=== PATIENT | female | born 1980 | race Caucasian/White ===

== ENCOUNTER 2016-11-23 22:44 | Emergency (ER) | payer MEDICAID, OTHER ==
[~2016-11-23] VITALS: Ht 162.6 cm; Wt 63.5 kg
[~2016-11-23 22:44] MED LIST: CRUT1EAC7 MC; DOCU100C37 PO; HYDR-3816 PO; HYDR1TAB PO; IBP600T1 PO; IBUP-1773 PO; METH0.2T45 PO; OXYC-12 PO; PREN1TAB83 PO; SIME80TA16 PO
[2016-11-23] MEDS ORDERED: NS IV 1000 ML 1,000 ML IV ONE (23:01)
[2016-11-23] MEDS ORDERED: KETOROLAC 30 MG/ML VIAL IVP STA (23:01)
[2016-11-23 23:06] LABS: BASOPHILS % (AUTO) 0 % (0-10); EOSINOPHILS # (AUTO) 0.2 10^3/uL (0.0-0.3); EOSINOPHILS % (AUTO) 2 % (0-10); LYMPHOCYTES % (AUTO) 36 % (12-44); MEAN CORPUSCULAR HEMOGLOBIN 29 PG (25-34); MEAN CORPUSCULAR HGB CONC 35 G/DL (32-36); MEAN CORPUSCULAR VOLUME 85 FL (80-99); MEAN PLATELET VOLUME 9.7 FL (7.4-10.4); MONOCYTES # (AUTO) 0.7 X 10^3 (0.0-1.0); MONOCYTES % (AUTO) 6 % (0-12); NEUTROPHILS # (AUTO) 6.1 X 10^3 (1.8-7.8); NEUTROPHILS % (AUTO) 55 % (42-75); PLATELET COUNT 226 10^3/uL (130-400); RED BLOOD COUNT 4.49 10^6/uL (4.35-5.85); RED CELL DISTRIBUTION WIDTH 13.2 % (10.0-14.5); WHITE BLOOD COUNT 11.1 10^3/uL (4.3-11.0)
[2016-11-23 23:06] LABS: BILIRUBIN,URINE NEGATIVE (NEGATIVE); KETONES,URINE NEGATIVE (NEGATIVE); LEUKOCYTE ESTERASE ,URINE NEGATIVE (NEGATIVE); NITRITE,URINE NEGATIVE (NEGATIVE); PH,URINE 7 (5-9); PROTEIN,URINE NEGATIVE (NEGATIVE); UROBILINOGEN,URINE NORMAL (NORMAL)
--- NOTE | 2016-11-23 23:16 | ED GU-Female ---
General Chief Complaint: Abdominal/GI Problems Stated Complaint: POSSIBLE KIDNEY STONE Nursing Triage Note: lower abdominal pain radiating to bilateral flanks x3 weeks. seen at [facility] for same last week. reports blood in urine. Nursing Sepsis Screen: No Definite Risk Source: patient Exam Limitations: no limitations History of Present Illness Time seen by provider: 22:55 Initial Comments Here with report of lower abdominal pain that radiates to the back bilaterally and dysuria. This is been going on for about 3 weeks. She was seen at her clinic and told that she had a little bit of blood in her urine but they said that she did not have a urinary tract infection last week. States that things are getting worse and she was concerned so presented for further evaluation. Denies nausea or vomiting. States ibuprofen and Tylenol at typical dosing is not helping. Last dose of ibuprofen was 5 hours ago and was 400 mg. Timing/Duration: week, getting worse Severity/Quality: burning Location: suprapubic, urethral Radiation: back, right flank, left flank Activities at Onset: none Sexual Mott History: less than 2 months ago, single partner Associated Symptoms: abdominal pain, dysuria, No fever/chills, lower back pain , No nausea/vomiting, No urinary frequency Allergies and Home Medications Allergies Coded Allergies: latex (Unverified Allergy, Unknown, RASH, 01/29/16) States latex gives her a rash Uncoded Allergies: PEROXIDE (Allergy, Unknown, RASH, 04/07/05) STATES GIVES HER A RASH Home Medications No Active Prescriptions or Reported Meds Constitutional: see HPI EENTM: no symptoms reported Respiratory: no symptoms reported, No cough, No short of breath Cardiovascular: no symptoms reported Gastrointestinal: abdominal pain, No diarrhea, No nausea, No vomiting Genitourinary: see HPI Musculoskeletal: see HPI, back pain, No muscle pain Skin: no symptoms reported All Other Systemes Reviewed Negative Unless Noted: Yes Past Bovuzmd-Jfsfmk-Kwvvbz Hx Patient Social History Alcohol Use: Denies Use Recreational Drug Use: No Smoking Status: Current Everyday Smoker Type Used: Cigarettes Recent Foreign Travel: No Contact w/Someone Who Travel: No Recent Infectious Disease Expo: No Recent Hopitalizations: No Immunizations Up To Date Tetanus Booster (TDap): Unknown Date of Influenza Vaccine: Dec 04, 2015 Seasonal Allergies Seasonal Allergies: Yes Surgeries History of Surgeries: Yes (OVARIAN CYST) Surgeries: Appendectomy, Gallbladder, 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 Respiratory History of Respiratory Disorde: No Cardiovascular History of Cardiac Disorders: No Neurological History of Neurological Disord: No Reproductive System : No Hx Reproductive Disorders: Yes (MENORRHAGIA, DYSMENORRHEA) Sexually Transmitted Disease: No HIV/AIDS: No Female Reproductive Disorders: Menstrual Problems, 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, 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 Gastrointestinal History of Gastrointestinal Di: No Musculoskeletal History of Musculoskeletal Dis: No Endocrine History of Endocrine Disorders: No HEENT History of HEENT Disorders: No Loss of Vision: Bilateral Hearing Impairment: Denies Cancer History of Cancer: No Psychosocial History of Psychiatric Problem: No Integumentary History of Skin or Integumenta: No Blood Transfusions History of Blood Disorders: Yes (ANEMIA) Adverse Reaction to a Blood Tr: No Reviewed Nursing Assessment Reviewed/Agree w Nursing PMH: Yes Family Medical History Significant Family History: No Pertinent Family Hx Physical Exam Vital Signs Vital Sign - Last 12Hours 11/23/16 22:57 Temp 98.3 Pulse 96 Resp 18 B/P (MAP) 142/91 Pulse Ox 100 O2 Delivery Room Air Capillary Refill : Less Than 3 Seconds General Appearance: WD/WN, no apparent distress HEENT: PERRL/EOMI, pharynx normal Neck: full range of motion, supple Cardiovascular: regular rate, rhythm, no murmur Respiratory: lungs clear, normal breath sounds Gastrointestinal: non tender, soft Back: normal inspection, CVA tenderness (R), CVA tenderness (L) Neurologic/Psychiatric: alert, oriented x 3 Skin: normal color Progress/Results/Core Measures Results/Orders Lab Results Laboratory Tests Test 11/23/16 22:54 11/23/16 23:00 Range/Units Urine Color YELLOW Urine Clarity CLEAR Urine pH 7 5-9 Urine Specific [place] 1.010 L 1.016-1.022 Urine Protein NEGATIVE NEGATIVE Urine Glucose (UA) NEGATIVE NEGATIVE Urine Ketones NEGATIVE NEGATIVE Urine Nitrite NEGATIVE NEGATIVE Urine Bilirubin NEGATIVE NEGATIVE Urine Urobilinogen NORMAL NORMAL MG/DL Urine Leukocyte Esterase NEGATIVE NEGATIVE Urine RBC (Auto) 1+ H NEGATIVE Urine RBC RARE /HPF Urine WBC 0-2 /HPF Urine Squamous Epithelial Cells 10-25 H /HPF Urine Crystals NONE /LPF Urine Bacteria MODERATE H /HPF Urine Casts NONE /LPF Urine Mucus NEGATIVE /LPF Urine Culture Indicated NO White Blood Count 11.1 H 4.3-11.0 10^3/uL Red Blood Count 4.49 4.35-5.85 10^6/uL Hemoglobin 13.2 11.5-16.0 G/DL Hematocrit 38 35-52 % Mean Corpuscular Volume 85 80-99 FL Mean Corpuscular Hemoglobin 29 25-34 PG Mean Corpuscular Hemoglobin Concent 35 32-36 G/DL Red Cell Distribution Width 13.2 10.0-14.5 % Platelet Count 226 130-400 10^3/uL Mean Platelet Volume 9.7 7.4-10.4 FL Neutrophils (%) (Auto) 55 42-75 % Lymphocytes (%) (Auto) 36 12-44 % Monocytes (%) (Auto) 6 0-12 % Eosinophils (%) (Auto) 2 0-10 % Basophils (%) (Auto) 0 0-10 % Neutrophils # (Auto) 6.1 1.8-7.8 X 10^3 Lymphocytes # (Auto) 4.0 1.0-4.0 X 10^3 Monocytes # (Auto) 0.7 0.0-1.0 X 10^3 Eosinophils # (Auto) 0.2 0.0-0.3 10^3/uL Basophils # (Auto) 0.0 0.0-0.1 10^3/uL Sodium Level 140 135-145 MMOL/L Potassium Level 3.2 L 3.6-5.0 MMOL/L Chloride Level 107 98-107 MMOL/L Carbon Dioxide Level 22 21-32 MMOL/L Anion Gap 11 5-14 MMOL/L Blood Urea Nitrogen 14 7-18 MG/DL Creatinine 0.77 0.60-1.30 MG/DL Estimat Glomerular Filtration Rate > 60 BUN/Creatinine Ratio 18 Glucose Level 77 70-105 MG/DL Calcium Level 9.5 8.5-10.1 MG/DL Total Bilirubin 0.2 0.1-1.0 MG/DL Aspartate Amino Transf (AST/SGOT) 12 5-34 U/L Alanine Aminotransferase (ALT/SGPT) 19 0-55 U/L Alkaline Phosphatase 45 40-136 U/L Total Protein 7.4 6.4-8.2 GM/DL Albumin 4.2 3.2-4.5 GM/DL My Orders Orders - WIL BEACH MD Cbc With Automated Diff (11/23/16 23:01) Comprehensive Metabolic Panel (11/23/16 23:01) Ua Culture If Indicated (11/23/16 23:01) Saline Lock/Iv-Start (11/23/16 23:01) Ns Iv 1000 Ml (Sodium Chloride 0.9%) (11/23/16 23:01) Ketorolac Injection (Toradol Injection) (11/23/16 23:01) Ct Abd/Pelvis Wo(Kidney Stone) (11/23/16 23:37) Medications Given in ED Current Medications Medications Dose Ordered Sig/Ivana Route Start Time Stop Time Status Last Admin Dose Admin Sodium Chloride 1,000 ml @ 0 mls/hr Q0M ONCE IV 11/23/16 23:01 11/23/16 23:02 DC 11/23/16 23:07 0 MLS/HR Vital Signs/I&O Vital Sign - Last 12Hours 11/23/16 11/23/16 22:57 23:07 Temp 98.3 98.3 Pulse 96 Resp 18 B/P (MAP) 142/91 Pulse Ox 100 O2 Delivery Room Air Blood Pressure Mean: 108 Progress Note : Progress Note Seen and evaluated. IV, labs and UA ordered. Normal saline 1 L bolus. Toradol 30 mg IV. Monitor patient. CT kidney stone protocol ordered given patient's history of blood in the urine. 0025: CT report noted. Patient feels a little bit better. No significant findings overall. Patient was instructed to follow-up with her sizer hand, Dr. Real for further evaluation including possibility of pelvic ultrasound. While not mentioned on the CT report, there does appear to be a possible left ovarian cysts and this should be further evaluated but can be done as outpatient. Patient verbalize understanding. Discharged home with return precautions. Patient verbalize understanding instructions and agreement with plan. Diagnostic Imaging Diagonstic Imaging: CT Plain Films/CT/US/NM/MRI: abdomen, pelvis Comments Normal noncontrast CT of the abdomen and pelvis. Reviewed: Reviewed [place] Study, Reviewed by Me Departure Impression Impression: Primary Impression: Pelvic pain Disposition: HOME, SELF-CARE Condition: Improved Departure-Patient Inst. Decision time for Depature: 00:32 Referrals: NO,LOCAL PHYSICIAN (PCP) Primary Care Physician BIANCA REAL DO Patient Instructions: Acute Abdomen (Belly Pain), Adult (DC) Add. Discharge Instructions: All discharge instructions reviewed with patient and/or family. Voiced understanding. Follow-up with Dr. Real this week for recheck and further evaluation including further imaging as indicated including ultrasound. Return for worse pain, fever , vomiting, weakness, breathing problems or other concerns as needed. Drink plenty of fluids. You may take ibuprofen 800 mg every 8 hours as needed for pain. You may take Tylenol 1000 mg every 8 hours as needed for pain. Scripts No Active Prescriptions or Reported Meds Copy Copies To 1: BIANCA REAL TIMOTHY D MD Nov 23, 2016 23:16
[2016-11-23 23:25] LABS: WBC,URINE 0-2 /HPF
[2016-11-23 23:26] LABS: ALANINE AMINOTRANSFERASE 19 U/L (0-55); ALBUMIN 4.2 GM/DL (3.2-4.5); ANION GAP 11 MMOL/L (5-14); ASPARTATE AMINO TRANSFERASE 12 U/L (5-34); BILIRUBIN,TOTAL 0.2 MG/DL (0.1-1.0); BLOOD UREA NITROGEN 14 MG/DL (7-18); BUN/CREATININE RATIO 18; CALCIUM 9.5 MG/DL (8.5-10.1); CARBON DIOXIDE 22 MMOL/L (21-32); CHLORIDE 107 MMOL/L (98-107); CREATININE SERUM 0.77 MG/DL (0.60-1.30); GFR ESTIMATED > 60; GLUCOSE 77 MG/DL (70-105); POTASSIUM 3.2 MMOL/L (3.6-5.0); SODIUM 140 MMOL/L (135-145); TOTAL PROTEIN 7.4 GM/DL (6.4-8.2)
[2016-11-24 00:38] VITALS: BP 119/82
--- NOTE | 2016-11-24 07:23 | Diagnostic Imaging Report ---
PROCEDURE: CT urinary tract, rule out kidney stone. TECHNIQUE: Multiple contiguous axial images were obtained through the abdomen and pelvis without the use of intravenous contrast. INDICATION: Low back pain. FINDINGS: The heart size is normal. The lung bases are clear. The liver is normal in size without focal lesions. The gallbladder is surgically absent. There is no biliary ductal dilatation. Spleen is normal. The pancreas and adrenal glands are unremarkable. The kidneys are normal. Specifically, there is no evidence of obstructive uropathy. Abdominal aorta is nonaneurysmal. Bowel gas pattern is nonspecific. The appendix appears to be surgically absent. There is no free fluid in the pelvis. There is a 3.6 cm solid-appearing left adnexal mass. The osseous structures are unremarkable. IMPRESSION: 3.6 cm solid left adnexal mass. While this may be a hemorrhagic cyst the possibility of neoplasm in the left adnexa cannot be excluded. This should be further evaluated with pelvic ultrasound. Otherwise unremarkable CT abdomen and pelvis. These findings were conveyed directly to Dr. Marina in the [facility] ER at 7:09 AM. Dictated by: Dictated on workstation # [id number]
== END 2016-11-24 00:36 | disposition home or self-care (01) ==
LOC: EDUNIT# 22:44 → ER 22:46
DX: R10.2 Pelvic and perineal pain (principal); F17.210 Nicotine dependence, cigarettes, uncomplicated; Z90.49 Acquired absence of other specified parts of digestive tract; Z98.51 Tubal ligation status; Z87.448 Personal history of other diseases of urinary system; Z90.710 Acquired absence of both cervix and uterus
CPT/HCPCS: 36415; 74176; 80053; 81000; 85025; 96374

== ENCOUNTER 2016-11-28 22:44 | Emergency (ER) | payer MEDICAID ==
[~2016-11-28] VITALS: Ht 162.6 cm; Wt 61.2 kg
[~2016-11-28 22:44] MED LIST changes: -HYDR-3812 PO; -OMEP20TA7 PO; -TRAM-42 PO
--- OUTSIDE RECORDS SUMMARY | 2016-11-28 22:50 | XMS REPORT ---
Author Author JANETH YASIR Organization [facility] Address [address] [place] [address] Care Team Providers Care Virtual Classroom Manager Name Role Phone YASIR FOWLER Unavailable PROBLEMS Type Condition ICD9-CM Code CPD22-HT Code Onset Dates Condition Status SNOMED Code Assessment Sore throat J02.9 Oct, Active 337082941 Assessment Acute non-recurrent frontal sinusitis J01.10 Oct, Active [id number] Assessment Environmental allergies Z91.09 Oct, Active 468165992 ALLERGIES Substance Reaction Event Type Date Status N.K.D.A. Unknown Non Drug Allergy Oct, Unknown SOCIAL HISTORY No smoking Hx information available PLAN OF CARE VITAL SIGNS Height 64 in 2015-11-06 Weight 147.0 lbs 2015-11-06 Heart Rate 90 bpm 2015-11-06 Respiratory Rate 20 2015-11-06 BMI 25.23 kg/m2 2015-11-06 Blood pressure systolic 144 mmHg 2015-11-06 Blood pressure diastolic 92 mmHg 2015-11-06 MEDICATIONS Medication Instructions Dosage Frequency Start Date End Date Duration Status PredniSONE 10 mg Orally twice a day 1 tablet 12h Oct, Oct, 05 days Active Azithromycin 250 MG Orally Once a day 2 tablets on the first day, then 1 tablet daily for 4 days 24h Oct, Oct, 5 day(s) Active RESULTS Name Result Date Reference Range STREP A (IN HOUSE) 2015-11-06 STREP A negative Control + Lot # [id number] Exp date PROCEDURES Procedure Date Ordered Related Diagnosis Body Site STREP A ASSAY W/OPTIC Nov 06, 2015 Office Visit, Est Pt., Level 3 Nov 06, 2015 IMMUNIZATIONS No Known Immunizations
[2016-11-28] MEDS ORDERED: FAMOTIDINE 20MG/2ML IV (PEPCID) IV STA (23:09)
[2016-11-28] MEDS ORDERED: ANTACID SUSP 30 ML UDC (MYLANTA) PO ONE (23:15)
[2016-11-28] MEDS ORDERED: LIDOCAINE 2% VISCOUS 15 ML UDC PO ONE (23:15)
--- NOTE | 2016-11-28 23:28 | ED Abdominal Pain ---
General Chief Complaint: Abdominal/GI Problems Stated Complaint: ABD PAIN Nursing Triage Note: PT STATES LOWER ABD PAIN. WAS DX WITH A CYST ON L OVARY ONE WEEK AGO PER CT, HAS US THIS AM. STATES SHE IS TO SEE DR REAL NEXT WEEK BUT IS UNABLE TO WAIT DUE TO THE PAIN SHE IS HAVING. Sepsis Screen: No Definite Risk Source of Information: Patient, Old Records Exam Limitations: No Limitations History of Present Illness Time Seen By Provider: 22:45 Initial Comments This 36-year-old woman presents to emergency room with complaints of abdominal pain for about the past 3 weeks. She has a dull aching in the upper abdomen and sharper pains in the pelvic region. The pain in the pelvis started first followed by the upper abdominal pain. She feels bloated. She was seen in the emergency room November 22. CT scan was performed. Renal stone protocol was used as patient had reported blood was present in her urine at a clinic visit. No stones were seen but patient did have a left adnexal mass felt to be a hemorrhagic cyst versus a solid mass. A follow-up ultrasound was performed earlier today. No solid masses were found near the left ovary but a smaller cystic lesion was seen suggesting resolving cyst or ruptured hemorrhagic cyst. Patient reports no treatments have improved her pain. Symptoms are no better than they were a week ago. She has a follow-up appointment scheduled with Dr. Real but could not be seen until next week. She denies any fever, nausea, vomiting, diarrhea, vaginal symptoms, or constipation. She is status post cholecystectomy, tubal ligation, appendectomy, and hysterectomy. Allergies and Home Medications Allergies Coded Allergies: latex (Unverified Allergy, Unknown, RASH, 01/29/16) States latex gives her a rash Uncoded Allergies: PEROXIDE (Allergy, Unknown, RASH, 04/07/05) STATES GIVES HER A RASH Home Medications Hydrocodone/Acetaminophen 1 Each Tablet, 1 EACH PO Q6H PRN for PAIN, #10 Prescribed by: ALISON SAMS on 11/29/16111 Omeprazole 20 Mg Tablet.dr, 20 MG PO BID, #60 Prescribed by: ALISON SAMS on 11/29/16111 Tramadol HCl 50 Mg Tablet, 50 MG PO Q6H PRN for PAIN-MODERATE TO SEVERE, #10 Prescribed by: ALISON SAMS on 11/29/16111 Review of Systems Constitutional: no symptoms reported EENTM: No Symptoms Reported Respiratory: No Symptoms Reported Cardiovascular: No Symptoms Reported Gastrointestinal: See HPI Genitourinary: See HPI Musculoskeletal: no symptoms reported Skin: no symptoms reported Psychiatric/Neurological: No Symptoms Reported Endocrine: No Symptoms Reported Past [place]-Eqnrnh-Vdzxlh Hx Patient Social History Alcohol Use: Denies Use Recreational Drug Use: No Smoking Status: Current Everyday Smoker Type Used: Cigarettes Recent Foreign Travel: No Contact w/Someone Who Travel: No Recent Infectious Disease Expo: No Recent Hopitalizations: No Physical Abuse: No Sexual Abuse: No Mistreated: No Fear: No Immunizations Up To Date Tetanus Booster (TDap): Unknown Date of Influenza Vaccine: Dec 04, 2015 Seasonal Allergies Seasonal Allergies: Yes Surgeries History of Surgeries: Yes (OVARIAN CYST) Surgeries: Appendectomy, Gallbladder, Hysterectomy (sparing the ovaries), 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 Respiratory History of Respiratory Disorde: No Cardiovascular History of Cardiac Disorders: No Neurological History of Neurological Disord: No Reproductive System : No Hx Reproductive Disorders: Yes (MENORRHAGIA, DYSMENORRHEA) Sexually Transmitted Disease: No HIV/AIDS: No Female Reproductive Disorders: Menstrual Problems, Ovarian 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, 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 Genitourinary History of Genitourinary Disor: No Gastrointestinal History of Gastrointestinal Di: No Musculoskeletal History of Musculoskeletal Dis: No Endocrine History of Endocrine Disorders: No HEENT History of HEENT Disorders: No Loss of Vision: Bilateral Hearing Impairment: Denies Cancer History of Cancer: No Psychosocial History of Psychiatric Problem: No Suicide Risk Score: 0 Integumentary History of Skin or Integumenta: No Blood Transfusions History of Blood Disorders: Yes (ANEMIA) Adverse Reaction to a Blood Tr: No Family Medical History Significant Family History: No Pertinent Family Hx Physical Exam Vital Signs VS - Last 72 Hours, by Label 11/28/16 22:54 Temp 97.3 Pulse 86 Resp 16 B/P (MAP) 137/96 Pulse Ox 98 Capillary Refill : Less Than 3 Seconds General Appearance: WD/WN, no apparent distress HEENT: PERRL/EOMI, normal ENT inspection Neck: normal inspection Respiratory: lungs clear, normal breath sounds, no respiratory distress, no accessory muscle use Cardiovascular: regular rate, rhythm, no edema, no murmur Gastrointestinal: normal bowel sounds, soft Extremities: normal inspection, no pedal edema Back: normal inspection 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, no motor/sensory deficits, alert, normal mood/affect, oriented x 3 Skin: normal color, warm/dry Progress/Results/Core Measures Results/Orders Lab Results Laboratory Tests Test 11/28/16 23:46 11/29/16 00:36 Range/Units White Blood Count 8.0 4.3-11.0 10^3/uL Red Blood Count 4.57 4.35-5.85 10^6/uL Hemoglobin 13.1 11.5-16.0 G/DL Hematocrit 39 35-52 % Mean Corpuscular Volume 85 80-99 FL Mean Corpuscular Hemoglobin 29 25-34 PG Mean Corpuscular Hemoglobin Concent 34 32-36 G/DL Red Cell Distribution Width 13.1 10.0-14.5 % Platelet Count 255 130-400 10^3/uL Mean Platelet Volume 9.5 7.4-10.4 FL Neutrophils (%) (Auto) 53 42-75 % Lymphocytes (%) (Auto) 39 12-44 % Monocytes (%) (Auto) 6 0-12 % Eosinophils (%) (Auto) 2 0-10 % Basophils (%) (Auto) 0 0-10 % Neutrophils # (Auto) 4.3 1.8-7.8 X 10^3 Lymphocytes # (Auto) 3.1 1.0-4.0 X 10^3 Monocytes # (Auto) 0.4 0.0-1.0 X 10^3 Eosinophils # (Auto) 0.1 0.0-0.3 10^3/uL Basophils # (Auto) 0.0 0.0-0.1 10^3/uL Sodium Level 142 135-145 MMOL/L Potassium Level 3.6 3.6-5.0 MMOL/L Chloride Level 106 98-107 MMOL/L Carbon Dioxide Level 24 21-32 MMOL/L Anion Gap 12 5-14 MMOL/L Blood Urea Nitrogen 16 7-18 MG/DL Creatinine 0.74 0.60-1.30 MG/DL Estimat Glomerular Filtration Rate > 60 BUN/Creatinine Ratio 22 Glucose Level 96 70-105 MG/DL Calcium Level 9.9 8.5-10.1 MG/DL Total Bilirubin 0.4 0.1-1.0 MG/DL Aspartate Amino Transf (AST/SGOT) 12 5-34 U/L Alanine Aminotransferase (ALT/SGPT) 15 0-55 U/L Alkaline Phosphatase 44 40-136 U/L C-Reactive Protein High Sensitivity 0.14 0.00-0.50 MG/DL Total Protein 7.3 6.4-8.2 GM/DL Albumin 4.4 3.2-4.5 GM/DL Lipase 29 8-78 U/L Urine Color YELLOW Urine Clarity VERY CLOUDY H Urine pH 7 5-9 Urine Specific Victor 1.015 L 1.016-1.022 Urine Protein NEGATIVE NEGATIVE Urine Glucose (UA) NEGATIVE NEGATIVE Urine Ketones NEGATIVE NEGATIVE Urine Nitrite NEGATIVE NEGATIVE Urine Bilirubin NEGATIVE NEGATIVE Urine Urobilinogen NORMAL NORMAL MG/DL Urine Leukocyte Esterase 1+ H NEGATIVE Urine RBC (Auto) NEGATIVE NEGATIVE Urine RBC NONE /HPF Urine WBC RARE /HPF Urine Squamous Epithelial Cells 2-5 /HPF Urine Crystals PRESENT H /LPF Urine Amorphous Sediment LARGE CHIQUIS PHOSPHATE H /LPF Urine Bacteria TRACE /HPF Urine Casts NONE /LPF Urine Mucus NEGATIVE /LPF Urine Culture Indicated NO My Orders Orders - ALISON ROBISON MD Cbc With Automated Diff (11/28/16 23:09) Comprehensive Metabolic Panel (11/28/16 23:09) Lipase (11/28/16 23:09) Saline Lock/Iv-Start (11/28/16 23:09) Hs C Reactive Protein (11/28/16 23:09) Lidocaine 2% Viscous 15 Ml (Xylocaine Vi (11/28/16 23:15) Antacid Suspension (Mylanta Suspension (11/28/16 23:15) Famotidine Injection (Pepcid Injection) (11/28/16 23:09) Ua Culture If Indicated (11/29/16 00:30) Hydrocodone/Apap 5/325 Tablet (Lortab 5 (11/29/16 01:15) Medications Given in ED Current Medications Medications Dose Ordered Sig/Ivana Route Start Time Stop Time Status Last Admin Dose Admin Acetaminophen/ Hydrocodone Bitart 1 tab ONCE ONCE PO 11/29/16 01:15 11/29/16 01:16 DC 11/29/16 01:18 1 TAB Al Hydrox/Mg Hydrox/Simethicone 30 ml ONCE ONCE PO 11/28/16 23:15 11/28/16 23:16 DC 11/28/16 23:28 30 ML Lidocaine HCl 15 ml ONCE ONCE PO 11/28/16 23:15 11/28/16 23:16 DC 11/28/16 23:26 15 ML Vital Signs/I&O Vital Sign - Last 12Hours 11/28/16 22:54 Temp 97.3 Pulse 86 Resp 16 B/P (MAP) 137/96 Pulse Ox 98 Blood Pressure Mean: 110 Progress Note : Progress Note Patient was treated with Pepcid and a GI cocktail which markedly improved her upper abdominal pain. Lower abdominal pain persisted. Patient was treated with hydrocodone before departure. Labs and urine were unremarkable. We did discuss further workup which might include a CT scan repeated with contrast. For now, we will treat the pain conservatively and allow her to see Dr. Real next week. If pain is persistent and not improving at that point, she can discuss CT with Dr. Real. Antacid therapy and dietary changes were recommended for treatment of suspected gastritis. Since NSAIDs would be contraindicated with gastritis, she was given prescriptions for Ultram and hydrocodone to trial. Departure Impression Impression: Primary Impression: Pelvic pain Additional Impressions: Ovarian cyst Qualified Codes: N83.202 - Unspecified ovarian cyst, left side Epigastric pain Gastritis Qualified Codes: K29.00 - Acute gastritis without bleeding Disposition: HOME, SELF-CARE Condition: Improved Departure-Patient Inst. Decision time for Depature: 01:08 Referrals: NO,LOCAL PHYSICIAN (PCP/Family) Primary Care Physician Patient Instructions: Acute Abdomen (Belly Pain), Adult (DC), Gastritis (DC) Add. Discharge Instructions: Your upper abdominal pain is likely due to gastritis complicated by NSAID use. Please treat with antacid medication for at least the next 2 weeks. You may additionally add Pepcid (famotidine) [id number] and/or Tums for further treatment of gastritis as needed. Avoid the following: Eating large meals, eating close to bedtime, caffeine, carbonation, chocolate, alcohol, citrus fruits and juices, tomato products, other acidic foods, mints, fatty or greasy foods, NSAID medications such as ibuprofen or naproxen, spicy foods, or anything else you know irritate your stomach. Keep your appointment with Dr. Real. Return to care if you have worsening symptoms such as fever, vomiting, diarrhea, or intensifying pain. Instead of NSAID medications, try Ultram (tramadol) in combination with Tylenol (acetaminophen). Use hydrocodone if pain is not well-controlled with tramadol. All discharge instructions reviewed with patient and/or family. Voiced understanding. Scripts Omeprazole (Omeprazole) 20 Mg Tablet.dr 20 MG PO BID, #60 TAB Prov: ALISON ROBISON MD 11/29/16 Hydrocodone/Acetaminophen (Hydrocodon -Acetaminophen 5-325) 1 Each Tablet 1 EACH PO Q6H Y for PAIN, #10 TAB Prov: ALISON ROBISON MD 11/29/16 Tramadol HCl (Ultram) 50 Mg Tablet 50 MG PO Q6H Y for PAIN-MODERATE TO SEVERE, #10 TAB Prov: ALISON ROBISON MD 11/29/16 Work/School Note: Work Release Form Date Seen in the Emergency Department: Nov 29, 2016 Return to Work: Nov 30, 2016 Restrictions: No Restrictions Copy Copies To 1: BIANCA REAL JOSHUA T MD Nov 28, 2016 23:28
[2016-11-28 23:52] LABS: BASOPHILS % (AUTO) 0 % (0-10); EOSINOPHILS # (AUTO) 0.1 10^3/uL (0.0-0.3); EOSINOPHILS % (AUTO) 2 % (0-10); LYMPHOCYTES # (AUTO) 3.1 X 10^3 (1.0-4.0); LYMPHOCYTES % (AUTO) 39 % (12-44); MEAN CORPUSCULAR HEMOGLOBIN 29 PG (25-34); MEAN CORPUSCULAR HGB CONC 34 G/DL (32-36); MEAN CORPUSCULAR VOLUME 85 FL (80-99); MEAN PLATELET VOLUME 9.5 FL (7.4-10.4); MONOCYTES # (AUTO) 0.4 X 10^3 (0.0-1.0); MONOCYTES % (AUTO) 6 % (0-12); NEUTROPHILS # (AUTO) 4.3 X 10^3 (1.8-7.8); NEUTROPHILS % (AUTO) 53 % (42-75); PLATELET COUNT 255 10^3/uL (130-400); RED BLOOD COUNT 4.57 10^6/uL (4.35-5.85); RED CELL DISTRIBUTION WIDTH 13.1 % (10.0-14.5)
[2016-11-29 00:13] LABS: ALANINE AMINOTRANSFERASE 15 U/L (0-55); ALBUMIN 4.4 GM/DL (3.2-4.5); ANION GAP 12 MMOL/L (5-14); ASPARTATE AMINO TRANSFERASE 12 U/L (5-34); BILIRUBIN,TOTAL 0.4 MG/DL (0.1-1.0); BLOOD UREA NITROGEN 16 MG/DL (7-18); BUN/CREATININE RATIO 22; CALCIUM 9.9 MG/DL (8.5-10.1); CARBON DIOXIDE 24 MMOL/L (21-32); CHLORIDE 106 MMOL/L (98-107); CREATININE SERUM 0.74 MG/DL (0.60-1.30); GFR ESTIMATED > 60; GLUCOSE 96 MG/DL (70-105); LIPASE 29 U/L (8-78); POTASSIUM 3.6 MMOL/L (3.6-5.0); SODIUM 142 MMOL/L (135-145); TOTAL PROTEIN 7.3 GM/DL (6.4-8.2); hs C REACTIVE PROTEIN 0.14 MG/DL (0.00-0.50)
[2016-11-29 00:42] LABS: BILIRUBIN,URINE NEGATIVE (NEGATIVE); KETONES,URINE NEGATIVE (NEGATIVE); LEUKOCYTE ESTERASE ,URINE 1+ (NEGATIVE); NITRITE,URINE NEGATIVE (NEGATIVE); PH,URINE 7 (5-9); PROTEIN,URINE NEGATIVE (NEGATIVE); UROBILINOGEN,URINE NORMAL (NORMAL)
[2016-11-29 00:49] LABS: WBC,URINE RARE /HPF
[2016-11-29] MEDS ORDERED: TRAM-42 PO (01:12)
[2016-11-29] MEDS ORDERED: OMEP20TA7 PO (01:12)
[2016-11-29] MEDS ORDERED: HYDR-3812 PO (01:12)
[2016-11-29] MEDS ORDERED: HYDROcodone/APAP 5 MG/325 MG (LORTAB) TAB PO ONE (01:15)
[2016-11-29 01:32] VITALS: BP 120/82
== END 2016-11-29 01:35 | disposition home or self-care (01) ==
LOC: EDUNIT# 22:44 → ER 22:45
DX: N83.209 Unspecified ovarian cyst, unspecified side (principal); K29.70 Gastritis, unspecified, without bleeding; F17.210 Nicotine dependence, cigarettes, uncomplicated; Z87.448 Personal history of other diseases of urinary system; Z90.49 Acquired absence of other specified parts of digestive tract; Z98.51 Tubal ligation status; Z90.710 Acquired absence of both cervix and uterus
CPT/HCPCS: 36415; 80053; 81000; 83690; 85025; 86141

== ENCOUNTER → 2016-11-28 | Outpatient (CLI) | payer MEDICAID ==
[~2016-11-28] MED LIST changes: +HYDR-3812 PO; +OMEP20TA7 PO; +TRAM-42 PO
--- NOTE | 2016-11-28 22:27 | Diagnostic Imaging Report ---
EXAMINATION: Transabdominal and transvaginal pelvic ultrasound. INDICATION: Left adnexal mass. Status post resection. FINDINGS: There urinary bladder appears unremarkable. The uterus has been removed. The left ovary is 3.3 x 2.9 x 2.2 cm in size. Ovarian follicles are seen. Thickened wall of an ovarian cystic lesion, measuring 1.9 cm, is seen probably representing a corpus luteum cyst. There are arterial and venous waveforms demonstrated. The right ovary is not seen, likely obscured by bowel gas. IMPRESSION: The left ovary appears unremarkable with suggestion of a 1.9 cm corpus luteum cyst. No solid mass is identified. The right ovary is not seen. Dictated by: Dictated on workstation # [id number]
== END ==
LOC: RAD 15:31
PROVIDERS: ATTEND Obstetrics & Gynecology
DX: N83.202 Unspecified ovarian cyst, left side (principal)
CPT/HCPCS: 76830; 76856

== ENCOUNTER 2016-12-09 12:26 | Outpatient (CLI) | payer MEDICAID ==
[~2016-12-09] VITALS: Ht 162.6 cm; Wt 65.3 kg
[~2016-12-09 12:26] MED LIST changes: +HYDR-3812 PO; +OMEP20TA7 PO; +TRAM-42 PO
[2016-12-09] MEDS ORDERED: CETI10TA17 PO (12:39)
[2016-12-09 12:41] VITALS: BP 117/80
[2016-12-09] MEDS ORDERED: OMEP40CA36 PO (13:01)
== END 2016-12-09 12:59 | disposition home or self-care (01) ==
LOC: PREOP 12:26
PROVIDERS: ATTEND Obstetrics & Gynecology
DX: Z01.818 Encounter for other preprocedural examination (principal); N83.202 Unspecified ovarian cyst, left side
CPT/HCPCS: 87081

== ENCOUNTER 2016-12-13 12:25 | Day surgery (SDC) | payer MEDICAID ==
[~2016-12-13] VITALS: Ht 162.6 cm; Wt 65.3 kg
[~2016-12-13 12:25] MED LIST changes: +CETI10TA17 PO; +OMEP40CA36 PO
[2016-12-13] MEDS ORDERED: ONDANSETRON 4 MG/2 ML (SDV) Z0FRAN ONE (12:43)
[2016-12-13] MEDS ORDERED: ROCURONIUM 50 MG/5 ML (ZEMURON) VIAL IV ONE ×2 (12:43→13:52)
[2016-12-13] MEDS ORDERED: DEXAMETHASONE 10 MG/ML (DECADRON) 1 ML VIAL ONE (12:43)
[2016-12-13] MEDS ORDERED: SEVOFLURANE (ULTANE) 15 ML INHAL SOLN ONE ×4 (12:43→13:52)
[2016-12-13] MEDS ORDERED: LIDOCAINE PF 2% 5 ML (XYLOCAINE) VIAL ONE (12:43)
[2016-12-13] MEDS ORDERED: proPOfol 200 MG/20 ML (DIPRIVAN) VIAL IV ONE (12:43)
[2016-12-13] MEDS ORDERED: fentaNYL INJECTION 100 MCG/2 ML AMP ONE ×2 (12:45→13:55)
[2016-12-13] MEDS ORDERED: ceFAZolin 1 GM/NS 50 ML IVPB IV ONE ×2 (12:45)
[2016-12-13] MEDS ORDERED: MIDAZOLAM 2 MG/2 ML (VERSED) VIAL ONE (12:45)
--- NOTE | 2016-12-13 12:48 | Progress Note-Pre Operative ---
Pre-Operative Progress Note H&P Reviewed The H&P was reviewed, patient examined and no changes noted. Date Seen by Provider: Dec 13, 2016 Time Seen by Provider: 12:30 Date H&P Reviewed: Dec 13, 2016 Time H&P Reviewed: 12:30 Pre-Operative Diagnosis: LEFT OVARIAN CYST, ACUTE PELVIC PAIN BIANCA REAL DO Dec 13, 2016 12:48
[2016-12-13] MEDS ORDERED: BUPIVACAINE 0.25% 30 ML (SENSORCAINE) VIAL ONE (12:58)
[2016-12-13] MEDS ORDERED: SCOPOLAMINE 1.5 MG (TRANSDERM-SCOP) PATCH TD ONE (13:00)
[2016-12-13] MEDS ORDERED: FAMOTIDINE 20MG/2ML IV (PEPCID) IVP ONE (13:00)
[2016-12-13] MEDS ORDERED: ONDANSETRON 4 MG/2 ML (SDV) Z0FRAN IVP ONE (13:00)
[2016-12-13 13:17] VITALS: BP 106/68
[2016-12-13] MEDS ORDERED: diphenhydrAMINE 50 MG/ML INJ (BENADRYL) ONE (13:37)
[2016-12-13] MEDS ORDERED: NEOSTIGMINE (BLOXIVERZ ) 1 MG/1ML 10 ML VIAL ONE (13:52)
[2016-12-13] MEDS ORDERED: GLYCOPYRROLATE 0.2 MG/ML (ROBINUL) 2 ML VIAL ONE (13:52)
[2016-12-13] MEDS ORDERED: ONDANSETRON 4 MG/2 ML (SDV) Z0FRAN IVP PRN (14:30)
[2016-12-13] MEDS: morphine INJ 10 MG/ML 1ML (SYR OR VIAL) IVP PRN ×2 (14:40→14:45)
--- NOTE | 2016-12-13 14:49 | Operative Report ---
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 A Burleson catheter was placed in the bladder. A sponge stick was placed in the vagina. Attention was now turned to the abdomen where the umbilicus was injected with 0.5% Marcaine and then a 5 mm Skin Incision was made and the Veress Needle was inserted. Intraabdominal placement was confirmed with a drop in pressure and the saline drop test. The abdomen was insufflated to a maximum pressure of 15 mmHg. A 5 mm trocar was inserted under direct visualization with an Optiview. A survey of the pelvis was done and the above mentioned findings were seen. Two additional trocars were placed. One in either lower quadrant. These were 5 mm trocars. They were placed lateral to the rectus muscles and avoiding the inferior epigastric vessels. I now took down the adhesions. This took ovary 30 minutes. I was unable to dissect out the endometriosis as it was scarred and would not elevate, but I cauterized with the Harmonic scalpel. After the adhesions were successfully taken down, I n ow inspected the ovary. It appeared to have no abnormal pathology but was very scarred and had endometriosis on the surface. The infundibulopelvic ligament was grasped and then cauterized with the Harmonic scalpel and then transected. The ovary was now removed. the left lower quadrant incision was extended to 10 mm. I now inserted a 10-12 trocar and then inserted the EndoCatch and then removed the ovary from the abdomen. The trocar was reinserted and the pelvis was irrigated. There was minimal bleeding. I now removed the gas and the instruments from the abdomen. the 10 mm fascial incision was repaired with 2-0 vicryl and then the skin incisions closed with 4-0 Monocryl in a subcuticular fashion . Bandages were placed. The patient was awakened and taken to the recovery room in stable fashion. Dermabond and bandages were place Sponge, laparotomy, needle and instrument counts correct times two Findings of the Procedure The left ovary had a simple cyst with adhesions of the bowel and the omentum adhering the ovary to the left side of the pelvis. There was omentum adherent to the vaginal cuff. The right ovary appeared normal. There was endometriosis at the vaginal cuff and on the pelvic side wall and at the right infundibulopelvic ligament. Allergies and Home Medications Allergies Coded Allergies: latex (Unverified Allergy, Unknown, RASH, 12/09/16) States latex gives her a rash Uncoded Allergies: PEROXIDE (Allergy, Unknown, RASH, 04/07/05) STATES GIVES HER A RASH Home Medications Cetirizine HCl 10 Mg Tablet, 10 MG PO DAILY PRN for CONGESTION, (Reported) Hydrocodone/Acetaminophen 1 Each Tablet, 1 EACH PO Q6H PRN for PAIN, #20 Prescribed by: BIANCA REAL on 12/13/16 1450 Omeprazole 40 Mg Capsule., 40 MG PO DAILY, (Reported) BIANCA REAL DO Dec 13, 2016 14:49
[2016-12-13] MEDS ORDERED: HYDR-3812 PO (14:50)
--- NOTE | 2016-12-13 14:52 | Discharge Inst-Women's Service ---
Discharge Inst-Women's Serv Depart Medication/Instructions New, Converted or Re-Newed RX: RX on Chart Final Diagnosis left ovarian cyst enteropelvic adhesions Consults/Follow Up Additional Follow Up: Yes (1-2 weeks for postoperative exam. ) Activity Activity: Activity as Tolerated Driving Instructions: No Driving for 24 Hours NO SMOKING: NO SMOKING Nothing Inside Vagina: No Douching, No [place], No Tampons Diet Discharge Diet: No Restrictions Symptoms to Report to : Swelling Increased, Bleeding Excessive, Fever Over 101 Degrees F, Vaginal Bleeding Increase, Cramps in Feet or Legs, Vaginal Discharge Foul For Any Problems or Questions: Contact Your Physician Skin/Wound Care Infection Signs and Symptoms: Increased Redness, Foul Odor of Wound, Increased Drainage, Skin Itchy or Has a Rash, Increased Swelling, Temperature Above 101 F Operative Area Clean and Dry: You May Remove Bandage (leave bandages in place x 3 days) Stitches/Nancy/Dermabond: Dermabond Bathing Instructions: BIANCA Aguayo DO Dec 13, 2016 14:52
[2016-12-13] MEDS ORDERED: KETOROLAC 30 MG/ML VIAL IVP ONE (15:00)
[2016-12-13] MEDS ORDERED: HYDROcodone/APAP 5 MG/325 MG (LORTAB) TAB PO PRN (15:00)
[2016-12-13 15:20] VITALS: BP 105/69
[2016-12-13 15:55] VITALS: BP 109/71
[2016-12-13] MEDS ORDERED: HYDROcodone/APAP 5 MG/325 MG (LORTAB) TAB ONE (16:00)
[2016-12-13 16:25] VITALS: BP 115/74
[2016-12-13 17:05] VITALS: BP 115/74
== END 2016-12-13 17:05 | disposition home or self-care (01) ==
LOC: SDC 12:25
PROVIDERS: ATTEND Obstetrics & Gynecology
DX: N83.12 Corpus luteum cyst of left ovary (principal); N83.02 Follicular cyst of left ovary; N80.3 Endometriosis of pelvic peritoneum; N80.4 Endometriosis of rectovaginal septum and vagina; F17.210 Nicotine dependence, cigarettes, uncomplicated
CPT/HCPCS: 84703; 94664

== ENCOUNTER 2017-01-16 10:02 | Emergency (ER) | payer MEDICAID ==
[~2017-01-16] VITALS: Ht 162.6 cm; Wt 61.2 kg
--- NOTE | 2017-01-16 11:39 | ED EENT ---
History of Present Illness General Chief Complaint: Eye Problems Stated Complaint: RT EYE IRRITATED THINKS IT MAY BE PINK EYE Nursing Triage Note: AMB TO ED REPORTS ON FRIDAY STARTED WITH SINUS PRESSURE AND CONGESTION TODAY R EYE RED AND SWOLLEN. WITH DRAINAGE CONCERN SHE MAY HAVE PINK EYE History of Present Illness Time seen by provider: 11:20 Initial Comments 36-year-old female presents with right-sided sinus pressure and pain, right eye pain, yellow discharge and inflammation. She reports her symptoms started with congestion, nasal drainage and cough 4 days ago, yesterday the right eye became inflamed. When she awoke this morning the right eye was matted closed with yellow crusty drainage. She started Zyrtec 4 days ago which has helped with the congestion. She denies any visual changes. She does wear contacts but she has been keeping them out since the symptoms began. Timing/Duration: gradual Location: eye (R) Prearrival Treatment: no prearrival treatment Associated Symptoms: facial pain/swelling, No fever, No malaise, nasal congestion/drainage, No poor fluid intake, No poor solids intake, sinus infection, sore throat, No tooth pain, voice change Allergies and Home Medications Allergies Coded Allergies: latex (Unverified Allergy, Unknown, RASH, 12/09/16) States latex gives her a rash Uncoded Allergies: PEROXIDE (Allergy, Unknown, RASH, 04/07/05) STATES GIVES HER A RASH Home Medications Azithromycin 250 Mg Tablet, 250 MG PO UD, #6 TAKE 2 TABLETS TODAY, THEN TAKE 1 TABLET DAILY FOR 4 MORE DAYS Prescribed by: CORNELIA TORIBIO on 01/16/17 1141 Cetirizine HCl 10 Mg Tablet, 10 MG PO DAILY PRN for CONGESTION, (Reported) Hydrocodone/Acetaminophen 1 Each Tablet, 1 EACH PO Q6H PRN for PAIN, #20 Prescribed by: BIANCA REAL on 12/13/16 1450 Omeprazole 40 Mg Capsule.dr, 40 MG PO DAILY, (Reported) Tobramycin/Dexamethasone 5 Ml Drops.susp, 2 DROPS OD Q4H, #1 Ref 0 Prescribed by: CORNELIA TORIBIO on 01/16/17 1141 Review of Systems Constitutional: no symptoms reported, see HPI Eyes: See HPI, Drainage (right eye), Inflammation, Pain, Denies Vision Changes , Contact Lenses Ears: No Symptoms Reported, See HPI Nose: see HPI, purulent discharge Mouth: no symptoms reported, see HPI Throat: see HPI, pain Respiratory: no symptoms reported, see HPI, No cough : No (complete hysterectomy) All Other Systems Reviewed Negative Unless Noted: Yes Past [id number]-[id number]-Saowtk Hx Patient Social History Alcohol Use: Denies Use Recreational Drug Use: No Smoking Status: Current Everyday Smoker Type Used: Cigarettes Recent Foreign Travel: No Contact w/Someone Who Travel: No Recent Infectious Disease Expo: No Recent Hopitalizations: No Immunizations Up To Date Tetanus Booster (TDap): Unknown Date of Influenza Vaccine: Dec 04, 2015 Seasonal Allergies Seasonal Allergies: Yes Surgeries History of Surgeries: Yes (OVARIAN CYSTECTOMY) Surgeries: Appendectomy, Gallbladder, Hysterectomy, 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 Respiratory History of Respiratory Disorde: No Cardiovascular History of Cardiac Disorders: No Neurological History of Neurological Disord: No Reproductive System Hx Reproductive Disorders: Yes Sexually Transmitted Disease: No HIV/AIDS: No 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 Genitourinary History of Genitourinary Disor: No Gastrointestinal History of Gastrointestinal Di: No Musculoskeletal History of Musculoskeletal Dis: No Endocrine History of Endocrine Disorders: No HEENT History of HEENT Disorders: No Loss of Vision: Bilateral Hearing Impairment: Denies Cancer History of Cancer: No Psychosocial History of Psychiatric Problem: No Integumentary History of Skin or Integumenta: No Blood Transfusions History of Blood Disorders: Yes (HX ANEMIA) Adverse Reaction to a Blood Tr: No (HAS HAD BLOOD WITH NO REACTION) Reviewed Nursing Assessment Reviewed/Agree w Nursing PMH: Yes Family Medical History Significant Family History: No Pertinent Family Hx Physical Exam Vital Signs Vital Sign - Last 12Hours 01/16/17 10:19 Temp 98.9 Pulse 98 Resp 18 B/P (MAP) 129/86 Pulse Ox 98 O2 Delivery Room Air General Appearance: WD/WN, no apparent distress Eyes: right eye conjunctival inflammation, right eye lid inflammation, right eye other (yellow purulent discharge), left eye normal inspection, bilateral eye PERRL, bilateral eye EOMI Ears: bilateral ear auricle normal, bilateral ear canal normal, bilateral ear TM normal Nose: normal inspection, No active bleeding, No discharge Mouth/Throat: normal mouth inspection, pharynx normal, No dental tenderness, No pharynx swelling, No pharynx tenderness, other (purulent postnasal drainage noted) Neck: non-tender, full range of motion, normal inspection, lymphadenopathy (R) Cardiovascular: normal peripheral pulses, regular rate, rhythm Respiratory: chest non-tender, lungs clear Gastrointestinal: normal bowel sounds, non tender, soft Neurologic/Psychiatric: no motor/sensory deficits, alert, normal mood/affect, oriented x 3 Skin: normal color, warm/dry Progress/Results/Core Measures Results/Orders Vital Signs/I&O Vital Sign - Last 12Hours 01/16/17 01/16/17 10:19 11:45 Temp 98.9 98.9 Pulse 98 98 Resp 18 18 B/P (MAP) 129/86 Pulse Ox 98 98 O2 Delivery Room Air Blood Pressure Mean: 100 Departure Impression Impression: Primary Impression: Conjunctivitis, right eye Qualified Codes: H10.31 - Unspecified acute conjunctivitis, right eye Additional Impression: Sinusitis Qualified Codes: J01.00 - Acute maxillary sinusitis, unspecified Disposition: HOME, SELF-CARE Condition: Stable Departure-Patient Inst. Decision time for Depature: 11:35 Referrals: NO,LOCAL PHYSICIAN (PCP/Family) Primary Care Physician Patient Instructions: Conjunctivitis ([place]keye) (DC), Sinusitis in Children Add. Discharge Instructions: Alternate Tylenol 650 mg and ibuprofen 600 mg every 4 hours for pain. Continue taking Zyrtec daily. Shikha pot or Bin med sinus rinse every 2 hours as needed. Take antibiotics and use eyedrops as prescribed. Return to [facility], [facility] or emergency department if symptoms worsen, fever greater than 101 not relieved by Tylenol or ibuprofen, changes in vision, increased drainage from eye or new problems. All discharge instructions reviewed with patient and/or family. Voiced understanding. Scripts Tobramycin/Dexamethasone (Tobradex Eye Drops) 5 Ml Drops.susp 2 DROPS OD Q4H, #1 DROP 0 Refills Prov: CORNELIA TORIBIO 01/16/17 Azithromycin (Zithromax) 250 Mg Tablet 250 MG PO UD, #6 TAB TAKE 2 TABLETS TODAY, THEN TAKE 1 TABLET DAILY FOR 4 MORE DAYS Prov: CORNELIA TORIBIO 01/16/17 Work/School Note: Work Release Form Date Seen in the Emergency Department: Jan 16, 2017 Return to Work: Jan 17, 2017 Restrictions: No Restrictions CORNELIA TORIBIO Jan 16, 2017 11:39
[2017-01-16] MEDS ORDERED: TOBR5DRO2 OD (11:41)
[2017-01-16] MEDS ORDERED: AZIT250T PO (11:41)
[2017-01-16 11:45] VITALS: BP 129/86
== END 2017-01-16 11:45 | disposition home or self-care (01) ==
LOC: EDUNIT# 10:02 → ER 10:03
DX: H10.9 Unspecified conjunctivitis (principal); J32.9 Chronic sinusitis, unspecified; F17.210 Nicotine dependence, cigarettes, uncomplicated; Z90.49 Acquired absence of other specified parts of digestive tract; Z98.51 Tubal ligation status; Z90.6 Acquired absence of other parts of urinary tract
CPT/HCPCS: 36430